=== PATIENT | male | born 1985 | race Caucasian/White ===

== ENCOUNTER → 2018-01-21 | Emergency (ER) | payer OTHER, MEDICAID ==
[~2018-01-21] VITALS: Ht 177.8 cm; Wt 118.0 kg
[~2018-01-21] MED LIST: HYDR-3965 PO; HYDROcodone/acetaminophen 5mg/325mg tablet PO ONE; IBUP-1986 PO; SUMAtriptan succ. 6 MG/0.5ml vial SQ ONE; ketorolac tromethamine 15mg/ml inj. IM ONE; ondansetron 4mg rapidly disintigrating tab PO ONE; orphenadrine citrate 60mg/2ml inj. IM ONE
[2018-01-21 20:09] VITALS: BP 148/98
== END | disposition home or self-care (01) ==
LOC: ER 20:03
DX: S60.212A Contusion of left wrist, initial encounter (principal); S16.1XXA Strain of muscle, fascia and tendon at neck level, initial encounter; S29.019A Strain of muscle and tendon of unspecified wall of thorax, initial encounter; S39.012A Strain of muscle, fascia and tendon of lower back, initial encounter; V89.2XXA Person injured in unspecified motor-vehicle accident, traffic, initial encounter; Y93.89 Activity, other specified; Y92.89 Other specified places as the place of occurrence of the external cause; Y99.8 Other external cause status
CPT/HCPCS: 72040; 72070; 72100; 73030; 73080; 73110; 96372; 99284; J1885; J2360; J3030

== ENCOUNTER 2018-09-06 05:20 | Day surgery (SDC) | payer OTHER ==
[2018-09-02 16:11] LABS: BASOPHILS % (AUTO) 0.4 % (0-1); EOSINOPHILS # (AUTO) 0.2 X10'3 (0-0.9); EOSINOPHILS % (AUTO) 2.3 % (0-6); LYMPHOCYTES # (AUTO) 2.4 X10'3 (1.1-4.8); LYMPHOCYTES % (AUTO) 23.6 % (21-51); MEAN CORPUSCULAR HEMOGLOBIN 26.7 PG (27.0-31.0); MEAN CORPUSCULAR HGB CONC 33.5 % (33.0-36.5); MEAN CORPUSCULAR VOLUME 79.6 FL (78-98); MEAN PLATELET VOLUME 7.9 FL (7.4-10.4); MONOCYTES # (AUTO) 0.6 X10'3 (0-0.9); MONOCYTES % (AUTO) 6.2 % (2-12); NEUTROPHILS # (AUTO) 6.7 X10'3 (1.8-7.7); NEUTROPHILS % (AUTO) 67.5 % (42-75); PRE OP HEMATOCRIT 44.9 % (42.0-52.0); PRE OP HEMOGLOBIN 15.1 g/dL (14.0-17.9); PRE OP PLATELET COUNT 314 X10'3 (140-440); RED BLOOD COUNT 5.65 X10'6 (4.70-6.10); RED CELL DISTRIBUTION WIDTH 13.5 % (11.5-14.5)
[2018-09-02 16:26] LABS: ALBUMIN 3.6 G/DL (3.4-5.0); ALBUMIN/GLOBULIN RATIO 0.8 (1.1-1.5); ALKALINE PHOSPHATASE 85 IU/L (46-116); BLOOD UREA NITROGEN 13 MG/DL (7-18); BUN/CREATININE RATIO 12.6 (5.4-32.0); CALCIUM 9.3 MG/DL (8.5-10.1); CHLORIDE 102 MMOL/L (99-107); CREATININE 1.03 MG/DL (0.60-1.10); PRE OP ALT 36 U/L (30-65); PRE OP ANION GAP 13 (8-16); PRE OP AST 18 U/L (10-37); PRE OP BILIRUB, TOTAL 0.4 MG/DL (0.0-1.0); PRE OP GLUCOSE 104 MG/DL (70-104); PRE OP POTASSIUM 3.9 MMOL/L (3.4-5.1); PRE OP SODIUM 139 MMOL/L (135-145); TOTAL CARBON DIOXIDE 24.5 MMOL/L (24-32); TOTAL PROTEIN 7.9 G/DL (6.4-8.2); eGFR 83 ML/MIN
[~2018-09-06] VITALS: Ht 177.8 cm; Wt 120.2 kg
[2018-09-06] VITALS (11 sets, daily range): BP systolic 106–159; BP diastolic 60–101
[~2018-09-06 05:20] MED LIST changes: +ACET1TAB12 PO; -HYDR-3965 PO; -HYDROcodone/acetaminophen 5mg/325mg tablet PO ONE; -IBUP-1986 PO; +LORA10TA7 PO; +SUMA50TA PO; -SUMAtriptan succ. 6 MG/0.5ml vial SQ ONE; -ketorolac tromethamine 15mg/ml inj. IM ONE; -ondansetron 4mg rapidly disintigrating tab PO ONE; -orphenadrine citrate 60mg/2ml inj. IM ONE; +ringers solution, lacted 1,000 ML IV SCH
[2018-09-06] MEDS ORDERED: cefazolin/dext.iso 2gm/50ml 50 ML IV ONE (05:30)
[2018-09-06] MEDS ORDERED: famotidine 20mg tablet PO ONE (05:30)
[2018-09-06] MEDS ORDERED: BUPIVAcaine/PF 2.5mg/ml (0.25%) 10ml vial ONE (06:45)
[2018-09-06] MEDS ORDERED: ROPIVAcaine 0.5% (5mg/ml) 30ml vial ONE (07:13)
[2018-09-06] MEDS ORDERED: cloNIDine hcl/PF 100mcg/ml inj ONE (07:13)
[2018-09-06] MEDS ORDERED: fentaNYL /PF 50mcg/ml 5ml ampule ONE (07:20)
[2018-09-06] MEDS ORDERED: midazolam 2 mg/2 ml injection ONE (07:20)
[2018-09-06] MEDS ORDERED: dexamethasone sod phosphate 4mg/ml inj. ONE (07:20)
[2018-09-06] MEDS ORDERED: propofol inj 20 ML IV ONE (07:20)
[2018-09-06] MEDS ORDERED: LIDOcaine 2% (20mg/ml) 5ml vial ONE (07:21)
[2018-09-06] MEDS ORDERED: ondansetron/PF 4mg/2ml inj ONE (07:21)
[2018-09-06] MEDS ORDERED: ringers solution, lacted 1,000 ML IV SCH (08:06)
[2018-09-06] MEDS ORDERED: fentaNYL/PF 50MCG/1 ML 2ML syringe IV PRN ×2 (08:10)
[2018-09-06] MEDS ORDERED: ondansetron/PF 4mg/2ml inj IV PRN (08:10)
[2018-09-06] MEDS ORDERED: labetalol 20mg/4ml (5mg/ml) syringe IV PRN (08:10)
[2018-09-06] MEDS ORDERED: hydrALAZINE 20mg/ml inj. IV PRN (08:10)
[2018-09-06] MEDS ORDERED: morphine 4 MG/ML inj SYRINge IV PRN ×2 (08:10)
[2018-09-06] MEDS ORDERED: sevoflurane 250ml liquid IH ONE (08:15)
[2018-09-06] MEDS ORDERED: HYDROcodone/acetaminophen 10/325mg tab PO PRN (09:35)
--- NOTE | 2018-09-06 09:40 | NUR ---
Received from OR via bed, accompanied by Anesthesiologist. Report received. Initial physical assessment done and recorded.
--- NOTE | 2018-09-06 11:15 | NUR ---
Discharge criteria met, discharge instructions given, demonstrates verbal understanding. Discharged home in good condition. No complains of pain during post op period, no pain meds given no complaints
== END 2018-09-06 11:15 | disposition home or self-care (01) ==
LOC: PAS 05:20
PROVIDERS: ATTEND Orthopaedic Surgery
DX: S43.431A Superior glenoid labrum lesion of right shoulder, initial encounter (principal); M75.21 Bicipital tendinitis, right shoulder; G89.29 Other chronic pain; M19.011 Primary osteoarthritis, right shoulder; M75.51 Bursitis of right shoulder; M51.26 Other intervertebral disc displacement, lumbar region; G43.909 Migraine, unspecified, not intractable, without status migrainosus; F43.10 Post-traumatic stress disorder, unspecified; G89.18 Other acute postprocedural pain; E66.01 Morbid (severe) obesity due to excess calories; Z87.891 Personal history of nicotine dependence; Z72.89 Other problems related to lifestyle; Z79.891 Long term (current) use of opiate analgesic; Z68.38 Body mass index [BMI] 38.0-38.9, adult; Z79.899 Other long term (current) drug therapy; Z98.890 Other specified postprocedural states; Z82.49 Family history of ischemic heart disease and other diseases of the circulatory system; X58.XXXA Exposure to other specified factors, initial encounter; Y93.89 Activity, other specified; Y92.89 Other specified places as the place of occurrence of the external cause; Y99.8 Other external cause status
CPT/HCPCS: 29807; 29828; 36415; 64450; 80053; 85025; A6449; J0690; J0735; J1100; J2001; J2250; J2405; J2704; J3010; J3490; J7120; A4565; A7000; J2795; J7030

== ENCOUNTER 2019-04-11 22:39 | Emergency (ER) | payer OTHER ==
[~2019-04-11] VITALS: Ht 177.8 cm; Wt 120.5 kg
[~2019-04-11 22:39] MED LIST changes: -ringers solution, lacted 1,000 ML IV SCH
[2019-04-11 22:44] VITALS: BP 160/112
[2019-04-11 23:40] LABS: PARTIAL THROMBOPLASTIN TIME 32 SECONDS (22-32)
[2019-04-11 23:52] LABS: BASOPHILS % (AUTO) 0.3 % (0-1); EOSINOPHILS # (AUTO) 0.2 X10'3 (0-0.9); EOSINOPHILS % (AUTO) 1.8 % (0-6); HEMATOCRIT 46.1 % (42.0-52.0); HEMOGLOBIN 15.9 g/dl (14.0-17.9); LYMPHOCYTES # (AUTO) 2.9 X10'3 (1.1-4.8); LYMPHOCYTES % (AUTO) 27.3 % (21-51); MEAN CORPUSCULAR HEMOGLOBIN 27.6 PG (27.0-31.0); MEAN CORPUSCULAR HGB CONC 34.5 g/dL (33.0-36.5); MEAN PLATELET VOLUME 7.9 FL (7.4-10.4); MONOCYTES # (AUTO) 0.7 X10'3 (0-0.9); MONOCYTES % (AUTO) 6.5 % (2-12); NEUTROPHILS # (AUTO) 6.8 X10'3 (1.8-7.7); NEUTROPHILS % (AUTO) 64.1 % (42-75); PLATELET COUNT 305 X10'3 (140-440); RED BLOOD COUNT 5.77 X10'6 (4.70-6.10); RED CELL DISTRIBUTION WIDTH 13.9 % (11.5-14.5); WHITE BLOOD COUNT 10.6 X10'3 (4.5-11.0)
[2019-04-12 00:02] LABS: GLUCOSE 141 MG/DL (70-104); POTASSIUM 3.7 MMOL/L (3.5-5.1)
[2019-04-12 00:04] LABS: ALANINE AMINOTRANSFERASE 39 U/L (12-78); ALBUMIN 3.4 G/DL (3.4-5.0); ALBUMIN/GLOBULIN RATIO 0.8 (1.1-1.5); ANION GAP 11 (8-16); BILIRUBIN,TOTAL 0.3 MG/DL (0.1-1.0); BLOOD UREA NITROGEN 14 MG/DL (7-18); BUN/CREATININE RATIO 13.2 (5.4-32.0); CALCIUM 8.9 MG/DL (8.5-10.1); CHLORIDE 105 MMOL/L (99-107); CREATININE 1.06 MG/DL (0.60-1.10); SODIUM 140 MMOL/L (135-145); TOTAL CARBON DIOXIDE 24.5 MMOL/L (24-32); TOTAL PROTEIN 7.8 G/DL (6.4-8.2); eGFR 80 ML/MIN
[2019-04-12 00:06] LABS: ASPARTATE AMINO TRANSFERASE 20 U/L (10-37)
[2019-04-12 00:11] LABS: ALKALINE PHOSPHATASE 77 IU/L (46-116)
[2019-04-12] MEDS ORDERED: ketorolac trometh inj. 60 MG/2 ML VIAL IM ONE (01:40)
[2019-04-12 01:41] LABS: D-DIMER < 0.19 MG/L FEU (0-0.50)
--- NOTE | 2019-04-12 01:43 | NUR ---
3 [facility] TROPONIN CANCELLED BY [facility] DING
== END 2019-04-12 03:29 | disposition home or self-care (01) ==
LOC: ER 22:40
DX: R07.89 Other chest pain (principal); G43.909 Migraine, unspecified, not intractable, without status migrainosus; Z79.899 Other long term (current) drug therapy
CPT/HCPCS: 36415; 71045; 80053; 84484; 85025; 85379; 85610; 85730; 93005; 96372; 99284; J1885

== ENCOUNTER 2020-10-08 16:49 | Emergency (ER) | payer OTHER ==
[~2020-10-08] VITALS: Ht 177.8 cm; Wt 119.9 kg
[2020-10-08] MEDS ORDERED: ondansetron 4mg rapidly disintigrating tab PO ONE (17:15)
[2020-10-08] MEDS ORDERED: ketorolac tromethamine 15mg/ml inj. IM ONE (17:15)
[2020-10-08 17:21] VITALS: BP 170/98
[2020-10-08 17:34] LABS: BASOPHILS # (AUTO) 0.1 X10'3 (0-0.2); BASOPHILS % (AUTO) 1.1 % (0-1); EOSINOPHILS # (AUTO) 0.3 X10'3 (0-0.9); EOSINOPHILS % (AUTO) 3.1 % (0-6); HEMATOCRIT 47.9 % (42.0-52.0); HEMOGLOBIN 15.8 g/dl (14.0-17.9); LYMPHOCYTES # (AUTO) 2.5 X10'3 (1.1-4.8); LYMPHOCYTES % (AUTO) 28.7 % (21-51); MEAN CORPUSCULAR VOLUME 78.9 FL (78-98); MONOCYTES # (AUTO) 0.9 X10'3 (0-0.9); MONOCYTES % (AUTO) 10.2 % (2-12); NEUTROPHILS % (AUTO) 56.9 % (42-75); PLATELET COUNT 263 X10'3 (140-440); RED BLOOD COUNT 6.07 X10'6 (4.70-6.10); RED CELL DISTRIBUTION WIDTH 14.5 % (11.5-14.5); WHITE BLOOD COUNT 8.8 X10'3 (4.5-11.0)
[2020-10-08 17:45] LABS: ALANINE AMINOTRANSFERASE 60 U/L (12-78); ALBUMIN 3.5 G/DL (3.4-5.0); ALBUMIN/GLOBULIN RATIO 0.8 (1.1-1.5); ALKALINE PHOSPHATASE 60 IU/L (46-116); ANION GAP 9 (8-16); ASPARTATE AMINO TRANSFERASE 29 U/L (10-37); BILIRUBIN,TOTAL 0.3 MG/DL (0.1-1.0); BLOOD UREA NITROGEN 11 MG/DL (7-18); BUN/CREATININE RATIO 9.6 (5.4-32.0); CALCIUM 8.4 MG/DL (8.5-10.1); CHLORIDE 105 MMOL/L (99-107); CREATININE 1.14 MG/DL (0.60-1.10); GLUCOSE 93 MG/DL (70-104); POTASSIUM 3.6 MMOL/L (3.5-5.1); SODIUM 140 MMOL/L (135-145); TOTAL PROTEIN 7.7 G/DL (6.4-8.2); eGFR 73 ML/MIN
[2020-10-08 18:06] LABS: CLARITY,URINE CLEAR (Clear); COLOR,URINE YELLOW (Yellow); GLUCOSE, URINE NEGATIVE (Neg); KETONES,URINE NEGATIVE (Neg); LEUKOCYTE ESTERASE ,URINE NEGATIVE (Neg); NITRITES, URINE NEGATIVE (Neg); OCCULT BLOOD,URINE NEGATIVE (Neg); PROTEIN,URINE NEGATIVE (Neg); UROBILINOGEN,URINE 0.2 E.U/dL (0.2-1.0)
[2020-10-08 18:07] LABS: UA COLLECTION TYPE CLN CATCH MIDSTREAM
[2020-10-08] MEDS ORDERED: ONDA4TAB6 PO (18:21)
== END 2020-10-08 18:33 | disposition home or self-care (01) ==
LOC: ER 16:49
DX: N23 Unspecified renal colic (principal); G89.29 Other chronic pain; F17.200 Nicotine dependence, unspecified, uncomplicated; Z98.890 Other specified postprocedural states; Z79.899 Other long term (current) drug therapy
CPT/HCPCS: 36415; 74176; 80053; 81003; 85025; 96372; 99284; J1885